=== PATIENT | male | born 1955 | race Caucasian/White ===

== ENCOUNTER 2017-08-24 08:06 | Outpatient (CLI) | payer OTHER ==
--- NOTE | 2017-08-24 10:30 | CT ---
LOW DOSE SCREENING CT: Date: 08/24/17 HISTORY: 40+ years of smoking. Patient still smokes. COPD. COMPARISON: None. FINDINGS: Lung Screening Specific (Lung-RADS): Category 4, suspicious finding requiring clinical evaluation. T here are solid nodules scattered throughout the lung parenchyma. For example, there is a 7.0 mm solid nodule in the left upper lobe. There is a solid nodule measuring 1.0 cm in the superior segment of t he right lower lobe. 7.0 mm nodule in the right lower lobe. Additional smaller, 3-5 mm, nodules are a ppreciated. Potential Significant Incidentals (Lung-RADS Category S): None. 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 Other Incidentals: There is atherosclerosis of the origin of the great vessels of the neck, as well as the visualized aorta. IMPRESSION: 1. Lung-RADS Category 4: Suspicious finding. There appears to be a 1.0 cm solid nodule in the super ior segment of the right lower lobe. Additional solid nodules are appreciated. Pulmonary consultation is recommended to determine direction of further evaluation. 2. Lung-RADS Category S: Negative. 3. Other incidental findings as above. CODE T. POS: [facility]
== END 2017-08-24 08:07 | disposition home or self-care (01) ==
LOC: CT 08:06
PROVIDERS: ATTEND Family Medicine
DX: Z12.2 Encounter for screening for malignant neoplasm of respiratory organs (principal); R91.8 Other nonspecific abnormal finding of lung field; F17.210 Nicotine dependence, cigarettes, uncomplicated
CPT/HCPCS: G0297

== ENCOUNTER 2017-09-17 10:52 | Emergency (ER) | payer OTHER ==
[2017-09-17] MEDS ORDERED: Acetaminophen 325 MG TAB ONE (12:21)
== END 2017-09-17 12:28 | disposition home or self-care (01) ==
LOC: ERS 10:52
DX: H66.41 Suppurative otitis media, unspecified, right ear (principal); H72.91 Unspecified perforation of tympanic membrane, right ear; I25.2 Old myocardial infarction; J44.9 Chronic obstructive pulmonary disease, unspecified; F17.210 Nicotine dependence, cigarettes, uncomplicated; Z79.899 Other long term (current) drug therapy
CPT/HCPCS: 99282

== ENCOUNTER 2017-11-30 16:46 | Outpatient (CLI) | payer OTHER ==
--- NOTE | 2017-11-30 17:51 | CT ---
CT CHEST WITHOUT CONTRAST 11/30/17 HISTORY: R91.1 - nodules. COMPARISON: CT pulmonary lung scan 08/24/17. FINDINGS: Relative to the prior examination the numerous previously marked and measured pulmonary nodules are u nchanged. No enlargement. No new pulmonary nodules. In the right lower lobe, there is soft tissue/debris filled peripheral right lower lobe bronchus exte nding nearly to the periphery, series 601, image 100. There is also soft tissue nodularity within an anterior right upper lobe bronchus, series 601, image 91. These findings were present on the prior ex amination and not significantly changed. No adenopathy. Heart size is similar. Moderate vascular calcifications. No pericardial effusion. Upper abdomen is unremarkable. Small fat containing ventral hernia, subxiphoid. Mild S-shaped scoliosis thoracic spine. No suspicious lytic or blastic lesions. Multiple old left yulisa ed anterior rib fractures. IMPRESSION: 1. No significant change in multiple bilateral pulmonary nodules. Followup CT in one year is rec ommended. 2. Right lower lobe bronchi filled with what appear to be soft tissue debris, series 601, image 91 and 101/102. Followup bronchoscopy is recommended. This will also be further assessed on followup CT of the chest. POS: [facility]
== END 2017-11-30 16:47 | disposition home or self-care (01) ==
LOC: CT 16:46
PROVIDERS: ATTEND Internal Medicine Critical Care Medicine
DX: R91.1 Solitary pulmonary nodule (principal); R91.8 Other nonspecific abnormal finding of lung field
CPT/HCPCS: 71250